=== PATIENT | male | born 1975 | race Caucasian/White ===

== ENCOUNTER 2017-05-04 19:52 | Emergency (ER) | payer MEDICAID, SELFPAY ==
[2017-05-04 19:57] VITALS: BP 134/86; PULSE 114; RESP 20; TEMP 37.3; O2SAT 95; BMI 24.7
[2017-05-04] MEDS: Ondansetron 4 MG/2 ML Vial IV (20:31)
[2017-05-04] MEDS: Ketorolac 30 MG/ML Syringe IV (20:31)
[2017-05-04] MEDS: 0.9% Normal Saline 1,000 ML 1000 ML IV (20:31)
[2017-05-04 20:36] LABS: Absolute Lymphocyte Count 2.48 X10^3/ul (0.83-4.51); Absolute Neutrophil Count 7.8 X10^3/uL (2.0-7.7); Basophil# 0.03 X10^3/uL; Basophil% 0.3 % (0-1); Eosinophil# 0.12 X10^3/uL; Eosinophils% 1.1 % (0-5); Hemoglobin 15.1 g/dl (13.0-16.5); Lymphocyte # 2.48 X10^3/ul (4.0); Lymphocyte % 21.8 % (19-41); Mean Corp Hgb Conc 33.6 g/gl (32-36); Mean Corpuscular Hgb 32.1 pg (27.0-32.0); Mean Corpuscular Volume 95.7 fL (80-94); Mean Platelet Vol. 9.8 fl (6.2-12.0); Monocyte# 0.92 X10^3/uL; Monocyte% 8.1 % (0-10); Neutrophil % 68.5 % (47-70); Platelet Count 252 K/mm3 (150-450); RBC Distribution Width CV 13.3 % (11.6-14.6); RBC Distribution Width SD 46.3 fl (35.1-43.9); White Blood Count 11.4 K/mm3 (4.4-11.0)
[2017-05-04 20:37] LABS: POSITIVE COUNT NO; POSITIVE DIFFERENTIAL NO; POSITIVE MORPHOLOGY NO
--- NOTE | 2017-05-04 20:46 | RAD_ITS ---
STUDY: X-RAY CHEST REASON FOR EXAM: Male, 42 years old. Cough TECHNIQUE: Frontal and lateral views COMPARISON: None. FINDINGS: The lungs are hyperaerated. There is no demonstrated pleural abnormality. Normal size heart. Normal mediastinum and nettie. Normal visualized pulmonary arteries. Normal visualized aortic arch and descending thoracic aorta. Normal visualized thoracic spine. Normal visualized ribs, clavicles, and shoulders. There is no demonstrated abnormality of the visualized soft tissue structures of the upper abdomen. RAD/Chest PA and Lateral IMPRESSION: Hyperaeration. Electronically Signed: Kevin Doss DO at 21:03 EST Tel [phone], Service support ,
[2017-05-04 21:01] LABS: Anion Gap 8 (5-15); BUN 8 mg/dL (7-18); BUN/Creat Ratio 7.8 RATIO (10-20); Calcium,Total 8.7 mg/dL (8.5-10.1); Chloride 110 mmol/L (98-107); Creatinine, Serum 1.03 mg/dL (0.70-1.30); EST Glomerular Filtration Rate 85 mL/min (>60); Est Glom Filt Rate - Afr Amer 102 mL/min (>60); Estimated Creatinine Clearance 88.24 ml/min; Glucose 81 mg/dL (70-110); Potassium 3.9 mmol/L (3.5-5.1); Sodium Level 142 mmol/L (136-145)
[2017-05-04 22:14] VITALS: RESP 17
--- NOTE | 2017-05-04 22:20 | ED.VISSUMM ---
- ER Visit Summary Date of Service: 05/04/17 Chief Complaint: Headache, dizzy, nausea, vomiting, body aches History of Present Illness: The patient is a 42 M who developed body aches, nausea, vomiting, and diarrhea this afternoon. Patient is a coworker gave him something to eat and was not sure if he might have food poisoning. He has also had cough with yellow sputum. Physical Examination: Blood pressure is 134/86, temperature 99.1, heart rate 114, respiratory rate 20, pulse ox 95% on room air. Patient sitting upright in bed no acute distress. He is nontoxic appearing. Head neck examination is unremarkable. Heart is regular rhythm but slightly tachycardic. Lung sounds are clear. Abdomen is soft with mild diffuse tenderness. There is no guarding or rebound. Hypoactive bowel sounds are noted. Test Results: CBC was a white count 11.4 with normal differential. Chemistry studies are normal. Two-view chest x-ray reveals hyperaeration. Influenza swab is negative. Emergency Department Course and Treatment: Patient was given Toradol, Zofran, and IV fluids. On repeat evaluation he is sleeping comfortably. He easily awakens. He will be given a prescription for Zofran. I believe patient likely has a viral syndrome. Repeat vital signs at discharge include a blood pressure of 150/56 and a heart rate of 67. Treatment Plan: [] Disposition: Discharge Impression: Viral syndrome This note was generated with [employer] ([employer]) dictation software. It may contain incorrect words, spelling, and punctuation that were not noted in review of the chart prior to signing ED Disposition - Plan for ED Patient: Disposition: Home or Assisted Living Chief Complaint: General Illness Instructions: ED Viral Syndrome Prescriptions: Ondansetron [Zofran Odt] 4 mg PO Q8H PRN PRN #10 tablet PRN Reason: Nausea Referrals: Andi Scott MD [STAFF PHYSICIAN] - As Needed
[2017-05-04] MEDS: Ondansetron ODT 4 MG Tablet PO (22:30)
[2017-05-04 22:33] VITALS: BP 115/56; PULSE 67; RESP 17; O2SAT 97
== END 2017-05-04 22:34 | disposition home or self-care (01) ==
PROVIDERS: Emergency Provider Emergency Medicine
DX: B34.9 Viral infection, unspecified (principal); R68.83 Chills (without fever); R05 Cough; R10.9 Unspecified abdominal pain; R11.2 Nausea with vomiting, unspecified; R19.7 Diarrhea, unspecified; M79.1 Myalgia; R51 Headache; R42 Dizziness and giddiness; R00.0 Tachycardia, unspecified; Z72.0 Tobacco use
CPT/HCPCS: 71046; 80048; 85025; 87804; 96361; 96374; 96375; 99283; J7030; A4216; J2405